=== PATIENT | male | born 1940 | race Caucasian/White ===

== ENCOUNTER 2018-01-28 11:01 | Day surgery (SDC) | payer MEDICARE, OTHER, SELFPAY ==
--- NOTE | 2018-01-28 06:58 | PCM.HP.BLA ---
History and Physical Date of Admission: 01/28/18 HISTORY AND PHYSICAL ? Aamir Alcala Joyce 1940 ? REFERRING PHYSICIAN: ~~Liborio Peterson MD ? CHIEF COMPLAINT: ~~colon consult ? HPI: The patient is a 76 year old male referred for endoscopy. ~Aamir notes no history of colon complaints. ~Specifically he denies any change in bowel habits, weight changes, blood in stools, black tarry stools or abdominal pain. ~He denies any family history of colon issues. ~The patient ~notes no history of upper GI complaints.Aamir believes he has had a remote colonoscopy, 20+ years ago, unsure of findings at that time. ~ ? Past medical history is significant for hyperlipidemia, coronary artery disease, hypertension, COPD, type II diabetes mellitus, and carotid artery stenosis. ~~He has a history of CABG and follows with Dr. Huntley in cardiology once a year. ~He denies any cardiac complaints currently. ~~~Patient notes he has had recent increased issues with his COPD recently including wheezing. ~He was evaluated by Josue Bolanos in primary care yesterday, has been ordered for spirometry which he is having completed today. ~He was also referred for colonoscopy. ~He denies any problems with sedation in the past. ~ ? ? PAST MEDICAL HISTORY PAST MEDICAL HISTORY Diagnosis Date CAD (coronary artery disease) ? ? sees Cardiology at [place] Carotid artery stenosis ? COPD (chronic obstructive pulmonary disease) ([facility]) ? ? cold air induced wheezing Diabetes mellitus type II ? ? proteinuria Hyperlipidemia ? Lung nodule ? ? serial ct's showed no change. PAD (peripheral artery disease) ([facility]) ? ? carotids, celiac artery ? ? PAST SURGICAL HISTORY PAST SURGICAL HISTORY Procedure Laterality Date ARTERY BYPASS GRAFT ? 1992 ? 3 vessel CABG -- [facility] HEART CATHETERIZATION ? 2004, 2008 ? drug eluting stents HEART CATHETERIZATION ? 12/24/12 ? thrombectomy SVG-OM PAST SURGICAL HISTORY OF ? 02/2010 ? Right Carotid Endarterectomy with Patch -- [facility] ? ? CURRENT MEDICATIONS ? Current Outpatient Prescriptions: atorvastatin (LIPITOR) 80 mg tablet Take 1 tablet by mouth once daily. albuterol HFA (PROAIR HFA) 90 mcg/actuation inhaler Inhale 2 Puffs as instructed every 4 hours as needed (FOR COUGH OR WHEEZE). glipiZIDE-metFORMIN (METAGLIP) 5-500 mg per tablet Take 2 tablets by mouth twice daily before meals. insulin glargine (LANTUS) 100 unit/mL (3 mL) inpn Inject 32 Units subcutaneously daily at bedtime. carvedilol (COREG) 12.5 mg tablet TAKE ONE TABLET BY MOUTH TWICE DAILY WITH ~MEALS nitroglycerin sublingual (NITROQUICK) 0.4 mg SL tablet Dissolve 1 tablet under the tongue every 5 minutes as needed for Chest Pain. losartan (COZAAR) 100 mg tablet Take 1 tablet by mouth once daily. clopidogrel (PLAVIX) 75 mg tablet Take 1 tablet by mouth once daily. blood sugar diagnostic (BLOOD GLUCOSE TEST) test strip Test blood sugar(s) 3 times daily. ~Dx: 250.02. Insulin: Yes insulin needles, DISPOSABLE, (PEN NEEDLE) 31 X 516 ndle Use one needle per dose. Once per day. Lancets lancets Test blood sugar(s) 3 times daily. ~Dx: 250.02. Insulin: No Aspirin 81 mg Tab Take 81 mg by mouth once daily. Lancets (ACCU-CHEK MULTICLIX LANCET) [facility] [place] Use as instructed ? No current facility-administered medications for this visit. ? ALLERGIES: Patient has no known allergies. ? PERSONAL HISTORY: SOCIAL HISTORY Social History ~~Marital status: ~~~~~~~~~~~Spouse name: ~~~~~~~~~~~~~~~~~~ ~~Years of education: ~~~~~~~~~~~~~~~~Number of children: 3 ~~~~~~~~ ? 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 ? Social History Main Topics ~~Smoking status: Former Smoker ~~~~~~~~~~~~~~~~~~~~~~~~~~~~~~~~~~~~~~~~~~~~~~~~~~~~~~~~ ~~~~~Packs/day: 0.30 ~~~~~Years: 10.00 ~~ ~~~~~Quit date: 07/09/1968 ~~Smokeless tobacco: Former User ~~~~~~~~~~~~~~~~~~ ~~Alcohol use: Yes ~~~~~~~~ ~~~~~Comment: 2-3 beers/year ~~Drug use: No ~~~~~~~~~ ~~Sexual activity: No ~~~~~~~~~~~~~~ ? Social History Narrative ~~3 daughters. ~2 in the area, one lives next door. ? ? FAMILY HISTORY: FAMILY HISTORY FAMILY HISTORY Problem Relation Age of Onset Diabetes Mother ? Diabetes Father ? Diabetes Sister ? Diabetes Brother ? Heart Brother ? Lipids Brother ? Heart Father ? Heart Mother ? Cancer Brother ? ? ? tongue Cancer Daughter ? ? ? retinoblastoma Breast Cancer Daughter ? ? REVIEW OF SYMPTOMS: ~~The review of systems data was entered by the nurse and reviewed by me ? Nursing Notes: Marium Avilez LPN ~11/14/2017 ~9:05 AM ~Signed REVIEW OF SYSTEMS: ~~~~~General:~~~The patient NOTES fatigue, denies weight loss, denies weight gain, NOTES feeling hot, and NOTES feelings of cold. ~~~~~Eyes: ~The patient denies glaucoma, denies eye injury/surgery, wears glasses or contacts. ~~~~~Ear/Nose/Throat: ~The patient denies allergies, denies hayfever, denies ear infections, and denies bloody noses. ~~~~~Cardiovascular: ~The patient denies chest pain, NOTES heart disease, denies high blood pressure,NOTES cardiac stent, denies prior heart attack, denies irregular heart beat, NOTES high cholesterol, ~NOTES poor circulation, NOTES heart failure, other cardiac issues, denies claudication, denies cold feet, denies peripheral arterial stent. ~~~~~Respiratory: ~The patient denies tuberculosis, denies pneumonia, NOTES frequent cough, denies pulmonary embolism, NOTES shortness of breath, and denies coughing up blood. ~~~~~Gastrointestinal: ~The patient denies difficulty swallowing, denies acid reflux, denies ulcers, denies vomiting, denies jaundice/hepatitis, denies gallbladder problems, denies black or tarry stools, denies hemorrhoids, denies bleeding from rectum, denies diverticulitis, denies constipation, denies diarrhea, denies loss of stool control, and denies hernias. ~~~~~Kidney/Bladder: ~The patient denies kidney stones, denies urine infections, and denies bloody urine. ~~~~~Skin: ~The patient denies a history of skin cancer, denies bleeding/changing moles, and denies a history of skin rash. ~~~~~Neurologic: ~The patient denies a history of epilepsy/convulsions, denies headaches, denies head/spinal injuries, and denies stroke/TIA. ~~~~~Psychiatric: ~The patient denies psychiatric medications, denies depression, and denies voices, denies substance abuse. ~~~~~Endocrine: ~The patient denies thyroid disorders, NOTES diabetes, and denies hormonal problems. ~~~~~Hematologic: ~The patient denies a history of bruising, denies bleeding, and denies anemia, denies blood clots. ~~~~~Infections: ~The patient denies a history of measles and mumps, denies rheumatic fever, and denies sexually transmitted diseases. ~~~~~Musculoskeletal: ~The patient denies back pain/injury, denies back problems, denies sciatica, denies knee/foot trouble, denies arthritis, or denies gout. ? ? When was patient's last Mammogram screening? N/A ? ~Last Colonoscopy: ~Many years ago ? Marium Avilez LPN~ Mary Walden PA-C ? ~ PHYSICAL EXAMINATION: ? General: ~The patient is 76 year old male, well nourished, well hydrated in no acute distress. ~The patient is oriented to time, place, and person. ? VITALS: Blood pressure 128/70, pulse 70, height 182.9 cm (6'), weight 106.6 kg (235 lb).~Body mass index is 31.87 kg/m?.~ ? HEENT: ~Normal cephalic, ataumatic, pupils are equally round, sclera are anicteric, mucous membranes are moist, oropharynx is clear. ~Neck has no masses, asymmetry or lymphadenopathy. ? Respiratory: ~+mildly decreased breath sounds base of right lung, otherwise clear to auscultation and percussion. ~Normal respiratory excursion and pattern. ? Cardiac: ~Examination is regular rate and rhythm. ? Abdominal exam: ~Soft, nontender, ~with no palpable masses. ~No hepatosplenomegaly. ~No palpable hernias. ? Rectal exam: exam deferred ? Extremities: ~no clubbing, cyanosis or edema. ~No adenopathy. ? Other: ? LABORATORY VALUES: As Noted ? RADIOLOGIC STUDIES: ~As Noted ? ? Assessment ~ IMPRESSION: encounter for screening colonoscopy. ~Comorbidities including COPD and CAD ? PLAN: ~We will plan for screening colonoscopy, plan for MAC due to his medical comorbidities. ~We discussed the risks and benefits of the planned endoscopy. ~I have informed the patient that complications can occur including failure to complete the endoscopy and perforation. ~The patient had the opportunity to ask questions concerning the planned endoscopy. ~My staff has also explained the procedure to the patient in understandable terms and has given the patient printed material concerning the procedure. ~The patient freely consents to surgery. ? I plan to use golytely bowel preparation for endoscopy-patient already has Rx. ~Reviewed importance of adequate hydration while completing bowel prep ? Patient instructed to REMAIN ON his Plavix and aspirin for the procedure ? I have instructed the patient to contact his PCP for instructions regarding his diabetic medications for the days of the clear liquid diet/bowel preparation and colonoscopy, as he may require dosage adjustment during this time ? Patient verbalized understanding of all above and agreed with the plan ? I plan for monitored anesthetic care. ? Diagnoses: (Z12.11) Colon cancer screening ~(primary encounter diagnosis) (Z79.01) On continuous oral anticoagulation (J44.9) Chronic obstructive pulmonary disease, unspecified COPD type (HCC) (E11.65, ~Z79.4) Uncontrolled type 2 diabetes mellitus without complication, with long-term current use of insulin (HCC) (Z95.1) S/P CABG (coronary artery bypass graft) ? My findings have been communicated to Dr. Peterson~via shared medical record. ~This note will be forwarded to Dr. Liborio Peterson MD. ~~ Return to Clinic: The patient is instructed to follow-up with me 1 week post operatively. ? ? Mary Walden PA-C
[2018-01-28 11:36] VITALS: BP 104/60; PULSE 84; RESP 20; TEMP 36.1; O2SAT 93; BMI 30.8
[2018-01-28 12:35] LABS: Bedside Glucose 169 mg/dL (70-110)
[2018-01-28 13:11] VITALS: BP 104/60; BP 75/40; PULSE 74; RESP 16; TEMP 35.8; O2SAT 92
[2018-01-28 13:15] VITALS: BP 104/60; BP 99/54; PULSE 74; RESP 16; O2SAT 91
[2018-01-28 13:20] VITALS: BP 104/60; BP 112/72; PULSE 73; RESP 16; O2SAT 91
[2018-01-28 13:35] VITALS: BP 104/60; BP 131/70; PULSE 73; RESP 16; O2SAT 93
[2018-01-28 13:51] VITALS: BP 104/60
--- NOTE | 2018-01-29 19:55 | PCM.OPRPT ---
Report of Operation Date of Procedure: 01/28/18 Pre-Operative Diagnosis: screening colonoscopy Post-Operative Diagnosis: normal colonoscopy Surgery/Procedure Performed:: colonoscopy small arms artillery repairer: None Type of Anesthesia:: MAC Anesthesiologist: Jose Antonio Madrid ASA3 Specimen's removed: none Description of Procedure: The patient was brought to the endoscopy suite. Sign in was performed verifying patient, site, planned procedure, critical nursing information, the patient was monitored with cardiac, pulse oximetric, and blood pressure monitoring devices. Monitored anesthetic care was provided for sedation. Following IV sedation the patient was positioned for colonoscopy. A digital rectal exam was performed which revealed no palpable abnormalities The video colonoscope was inserted and advanced to the cecum as verified by the ileocecal valve, cecal base anatomic features and palpation. the entire colon was unremarkable. Retroflexion was unremarkable. Based on the patient's age, I recommend no further endoscopy. The patient tolerated the procedure well and was brought to recovery in stable condition
== END 2018-01-28 13:54 | disposition home or self-care (01) ==
LOC: EN 11:03 → AC 11:06
PROVIDERS: PCP Family Medicine; Visit Provider Surgery
PROC: 0DJD8ZZ Inspection of Lower Intestinal Tract, Via Natural or Artificial Opening Endoscopic (ICD-10-PCS; CPT 45378; principal; 2018-01-28 12:55)
DX: Z12.11 Encounter for screening for malignant neoplasm of colon (principal); E78.5 Hyperlipidemia, unspecified; I25.10 Atherosclerotic heart disease of native coronary artery without angina pectoris; I10 Essential (primary) hypertension; J44.9 Chronic obstructive pulmonary disease, unspecified; E11.9 Type 2 diabetes mellitus without complications; I65.29 Occlusion and stenosis of unspecified carotid artery; Z95.1 Presence of aortocoronary bypass graft; Z87.891 Personal history of nicotine dependence; Z79.4 Long term (current) use of insulin; Z79.51 Long term (current) use of inhaled steroids; Z79.02 Long term (current) use of antithrombotics/antiplatelets; Z79.82 Long term (current) use of aspirin; Z79.899 Other long term (current) drug therapy
CPT/HCPCS: G0121; 82962; J7120